=== PATIENT | male | born 1960 | race Caucasian/White ===

== ENCOUNTER 2020-02-09 11:30 | Inpatient (IN) | payer MEDICARE, MEDICAID ==
[~2020-02-09] VITALS: Ht 177.8 cm; Wt 64.9 kg
[2020-02-09] MEDS ORDERED: HALOPERIDOL 5 MG TABLET PO PRN (14:30)
[2020-02-09] MEDS ORDERED: ZOLPIDEM TARTRATE 10 MG TABLET PO PRN (14:30)
[2020-02-09] MEDS ORDERED: LORazepam 2 MG TABLET PO PRN (14:30)
[2020-02-09 15:06] VITALS: BP 104/74
[2020-02-09] MEDS ORDERED: LEVE500T53 PO (15:12)
[2020-02-09] MEDS ORDERED: METF-960 PO (15:12)
[2020-02-09 16:04] VITALS: BP 119/72
[2020-02-09 16:19] LABS: GLUCOMETER DEV NAME(LOC) BV2X.; GLUCOSE,POINT OF CARE 87 MG/DL (70-110)
[2020-02-09] MEDS ORDERED: PNEUMOCOCCAL VACCINE POLYVALENT 0.5 ML VIAL [PPSV23] IM ONE (16:45)
[2020-02-10 00:21] VITALS: BP 112/76
[2020-02-10 07:27] LABS: BASOPHILS % (AUTO) 0.7 % (0.0-2.0); EOSINOPHILS % (AUTO) 3.2 % (1.0-6.0); HEMATOCRIT 43.1 % (41-53); HEMOGLOBIN 14.2 g/dL (13.5-17.5); LYMPHOCYTES # (AUTO) 1.5 K/uL (1.0-4.8); LYMPHOCYTES % (AUTO) 25.2 % (22.0-44.0); MEAN CORPUSCULAR HEMOGLOBIN 29.1 pg (26.0-34.0); MEAN CORPUSCULAR VOLUME 88 fL (80-100); MONOCYTES # (AUTO) 0.5 K/uL (0.1-1.0); MONOCYTES % (AUTO) 8.5 % (2.0-9.0); NEUTROPHILS # (AUTO) 3.8 K/uL (1.8-7.7); NEUTROPHILS % (AUTO) 62.4 % (40.0-70.0); PLATELET COUNT (AUTO) 260 K/uL (150-450); RED BLOOD CELL COUNT(AUTO) 4.89 MIL/uL (4.50-5.90); RED CELL DISTRIBUTION WIDTH 14.7 % (11.5-14.5)
[2020-02-10 07:37] VITALS: BP 117/68
[2020-02-10 07:47] LABS: HEMOGLOBIN A1C 5.5 % (3.8-5.6)
[2020-02-10 07:51] LABS: ALANINE AMINOTRANSFERASE 23 U/L (12-78); ALKALINE PHOSPHATASE 73 U/L (46-116); ANION GAP 10 mmol/L (8-16); ASPARTATE AMINOTRANSFERASE 17 U/L (15-37); BILIRUBIN,TOTAL 0.7 mg/dL (0.1-1.0); CALCIUM, TOTAL 9.4 mg/dL (8.8-10.5); CARBON DIOXIDE 29 mmol/L (22-29); CHLORIDE 102 mmol/L (98-107); CHOL/HDL RATIO 2.9 (4.2-7.3); CHOLESTEROL 179 mg/dL (131-200); CREATININE 0.73 mg/dL (0.60-1.30); FREE T4 (FREE THYROXINE) 1.17 ng/dL (0.76-1.46); GLOMERULAR FILTR. RATE CALC > 60 mL/min (>60); GLUCOSE,RANDOM 84 mg/dL (70-110); HDL CHOLESTEROL 61 mg/dL (40-60); LDL CHOL (CALC.) 92 mg/dL (0-130); SODIUM SERUM 141 mmol/L (136-145); THYROID STIMULATING HORMONE 1.93 uIU/mL (0.36-3.74); TOTAL PROTEIN, SERUM 7.1 g/dL (6.4-8.2); TRIGLYCERIDES 129 mg/dL (15-150); UREA NITROGEN, BLOOD 12 mg/dL (7-18)
[2020-02-10 08:06] VITALS: BP 117/68
[2020-02-10] MEDS ORDERED: LevETIRAcetam 500 MG TABLET PO SCH (09:00)
[2020-02-10] MEDS ORDERED: NICOTINE 14 MG/24 HOUR PATCH TD PRN (09:15)
[2020-02-10] MEDS ORDERED: GuaiFENesin/D-METHORPHAN [SUGAR-FREE] 200-20MG/10 ML SYRUP UDCUP PO PRN (09:15)
[2020-02-10] MEDS ORDERED: ACETAMINOPHEN 325 MG TABLET PO PRN (09:15)
[2020-02-10] MEDS ORDERED: ALBUTEROL SULFATE HFA 90 MCG/PUFF 8 GM INHALER IH PRN (09:15)
[2020-02-10] MEDS ORDERED: MAG HYDROX/AL HYDROX/SIMETH ES 30 ML SUSPENSION UDCUP PO PRN (09:15)
[2020-02-10] MEDS ORDERED: PETROLATUM,WHITE 28 GM JELLY TP PRN (09:15)
[2020-02-10] MEDS ORDERED: MAGNESIUM HYDROXIDE SUSPENSION 30 ML UDCUP PO PRN (09:15)
[2020-02-10] MEDS ORDERED: LOPERAMIDE HCL 2 MG CAPSULE PO PRN (09:15)
[2020-02-10] MEDS ORDERED: IBUPROFEN 400 MG TABLET PO PRN (09:15)
[2020-02-10] MEDS ORDERED: ONDANSETRON HCL 4 MG TABLET PO PRN (09:15)
[2020-02-10] MEDS ORDERED: DOCUSATE SODIUM 100 MG CAPSULE PO PRN (09:15)
[2020-02-10] MEDS ORDERED: CloNIDine HCL 0.1 MG TABLET PO PRN (09:15)
[2020-02-10] MEDS ORDERED: PALIPERIDONE 3 MG ER TABLET PO ONE (13:00)
[2020-02-10] MEDS ORDERED: BuPROPion HCL XL 150 MG ER TABLET PO ONE (13:00)
[2020-02-10 16:15] VITALS: BP 108/76
[2020-02-10] MEDS: MetFORMIN HCL 500 MG TABLET PO SCH (16:29)
[2020-02-10] MEDS: LevETIRAcetam 500 MG TABLET PO SCH (16:29)
[2020-02-10 16:50] LABS: GLUCOMETER DEV NAME(LOC) BV2X.; GLUCOSE,POINT OF CARE 83 MG/DL (70-110)
[2020-02-10] MEDS: TraZODone HCL 100 MG TABLET PO SCH (20:27)
[2020-02-11 00:42] VITALS: BP 100/64
[2020-02-11 06:28] LABS: GLUCOMETER DEV NAME(LOC) BV2X.; GLUCOSE,POINT OF CARE 98 MG/DL (70-110)
[2020-02-11] MEDS: MetFORMIN HCL 500 MG TABLET PO SCH ×2 (06:57→16:28)
[2020-02-11 08:50] VITALS: BP 107/64
[2020-02-11] MEDS: LevETIRAcetam 500 MG TABLET PO SCH ×2 (09:48→16:28)
[2020-02-11] MEDS: BuPROPion HCL XL 150 MG ER TABLET PO SCH (09:48)
[2020-02-11] MEDS: PALIPERIDONE 3 MG ER TABLET PO SCH (09:48)
[2020-02-11 16:04] VITALS: BP 107/60
[2020-02-11 16:24] LABS: GLUCOMETER DEV NAME(LOC) BV2X.; GLUCOSE,POINT OF CARE 90 MG/DL (70-110)
[2020-02-11] MEDS: TraZODone HCL 100 MG TABLET PO SCH (20:26)
[2020-02-12 00:33] VITALS: BP 111/60
[2020-02-12 06:04] LABS: GLUCOMETER DEV NAME(LOC) BV2X.; GLUCOSE,POINT OF CARE 79 MG/DL (70-110)
[2020-02-12] MEDS: MetFORMIN HCL 500 MG TABLET PO SCH ×2 (07:05→16:30)
[2020-02-12] MEDS: LevETIRAcetam 500 MG TABLET PO SCH ×2 (08:06→16:30)
[2020-02-12] MEDS: PALIPERIDONE 3 MG ER TABLET PO SCH (08:06)
[2020-02-12] MEDS: BuPROPion HCL XL 150 MG ER TABLET PO SCH (08:06)
[2020-02-12 08:23] VITALS: BP 104/54
[2020-02-12 16:24] LABS: GLUCOMETER DEV NAME(LOC) BV2X.; GLUCOSE,POINT OF CARE 107 MG/DL (70-110)
[2020-02-12 16:46] VITALS: BP 95/61
[2020-02-12] MEDS: TraZODone HCL 100 MG TABLET PO SCH (20:31)
[2020-02-13 00:11] VITALS: BP 109/72
[2020-02-13 06:28] LABS: GLUCOMETER DEV NAME(LOC) BV2X.; GLUCOSE,POINT OF CARE 83 MG/DL (70-110)
[2020-02-13] MEDS: MetFORMIN HCL 500 MG TABLET PO SCH ×2 (06:59→17:36)
[2020-02-13 08:18] VITALS: BP 91/71
[2020-02-13] MEDS: PALIPERIDONE 3 MG ER TABLET PO SCH (08:26)
[2020-02-13] MEDS: LevETIRAcetam 500 MG TABLET PO SCH ×2 (08:27→17:36)
[2020-02-13] MEDS: BuPROPion HCL XL 150 MG ER TABLET PO SCH (08:27)
[2020-02-13 16:22] VITALS: BP 100/70
[2020-02-13 16:53] LABS: GLUCOMETER DEV NAME(LOC) BV2X.; GLUCOSE,POINT OF CARE 101 MG/DL (70-110)
[2020-02-13] MEDS: TraZODone HCL 100 MG TABLET PO SCH (20:05)
[2020-02-14 05:11] VITALS: BP 107/72
[2020-02-14] MEDS: MetFORMIN HCL 500 MG TABLET PO SCH ×2 (06:38→16:32)
[2020-02-14 06:47] LABS: GLUCOMETER DEV NAME(LOC) BV2X.; GLUCOSE,POINT OF CARE 88 MG/DL (70-110)
[2020-02-14 08:15] VITALS: BP 105/75
[2020-02-14] MEDS: LevETIRAcetam 500 MG TABLET PO SCH ×2 (08:47→16:31)
[2020-02-14] MEDS: BuPROPion HCL XL 150 MG ER TABLET PO SCH (08:47)
[2020-02-14] MEDS: PALIPERIDONE 3 MG ER TABLET PO SCH (08:47)
[2020-02-14 16:01] VITALS: BP 105/70
[2020-02-14 16:24] LABS: GLUCOMETER DEV NAME(LOC) BV2X.; GLUCOSE,POINT OF CARE 94 MG/DL (70-110)
[2020-02-14] MEDS: TraZODone HCL 100 MG TABLET PO SCH (20:36)
[2020-02-15] VITALS (7 sets, daily range): BP systolic 100–109; BP diastolic 64–72
[2020-02-15 06:26] LABS: GLUCOMETER DEV NAME(LOC) BV2X.; GLUCOSE,POINT OF CARE 87 MG/DL (70-110)
[2020-02-15] MEDS: MetFORMIN HCL 500 MG TABLET PO SCH ×2 (06:39→16:27)
[2020-02-15] MEDS: LevETIRAcetam 500 MG TABLET PO SCH ×2 (08:09→16:27)
[2020-02-15] MEDS: PALIPERIDONE 3 MG ER TABLET PO SCH (08:09)
[2020-02-15] MEDS: BuPROPion HCL XL 150 MG ER TABLET PO SCH (08:10)
[2020-02-15 16:27] LABS: GLUCOMETER DEV NAME(LOC) BV2X.; GLUCOSE,POINT OF CARE 93 MG/DL (70-110)
[2020-02-15] MEDS: TraZODone HCL 100 MG TABLET PO SCH (20:28)
[2020-02-16 01:59] VITALS: BP 103/45
[2020-02-16 02:06] VITALS: BP 103/45
[2020-02-16 06:24] LABS: GLUCOMETER DEV NAME(LOC) BV2X.; GLUCOSE,POINT OF CARE 123 MG/DL (70-110)
[2020-02-16] MEDS: MetFORMIN HCL 500 MG TABLET PO SCH ×2 (06:31→16:58)
[2020-02-16] MEDS: PALIPERIDONE 3 MG ER TABLET PO SCH (08:13)
[2020-02-16] MEDS: LevETIRAcetam 500 MG TABLET PO SCH ×2 (08:13→16:58)
[2020-02-16] MEDS: BuPROPion HCL XL 150 MG ER TABLET PO SCH (08:13)
[2020-02-16 08:18] VITALS: BP 115/71
[2020-02-16 16:06] VITALS: BP 145/72
[2020-02-16 17:05] LABS: GLUCOMETER DEV NAME(LOC) BV2X.; GLUCOSE,POINT OF CARE 78 MG/DL (70-110)
[2020-02-16] MEDS: TraZODone HCL 100 MG TABLET PO SCH (20:55)
[2020-02-17 02:57] VITALS: BP 91/66
[2020-02-17 05:00] VITALS: BP 91/66
[2020-02-17] MEDS: MetFORMIN HCL 500 MG TABLET PO SCH ×2 (06:31→16:38)
[2020-02-17 07:14] LABS: GLUCOMETER DEV NAME(LOC) BV2X.; GLUCOSE,POINT OF CARE 86 MG/DL (70-110)
[2020-02-17] MEDS: BuPROPion HCL XL 150 MG ER TABLET PO SCH (08:14)
[2020-02-17] MEDS: PALIPERIDONE 3 MG ER TABLET PO SCH (08:14)
[2020-02-17] MEDS: LevETIRAcetam 500 MG TABLET PO SCH ×2 (08:14→16:38)
[2020-02-17 09:11] VITALS: BP 121/64
[2020-02-17] MEDS ORDERED: DENTURE ADHESIVE 68 GM CREAM DT PRN (13:15)
[2020-02-17 17:05] LABS: GLUCOMETER DEV NAME(LOC) BV2X.; GLUCOSE,POINT OF CARE 87 MG/DL (70-110)
[2020-02-17 17:37] VITALS: BP 102/60
[2020-02-17] MEDS: TraZODone HCL 100 MG TABLET PO SCH (20:12)
[2020-02-18 06:00] VITALS: BP 115/82
[2020-02-18 06:09] LABS: GLUCOMETER DEV NAME(LOC) BV2X.; GLUCOSE,POINT OF CARE 89 MG/DL (70-110)
[2020-02-18] MEDS: MetFORMIN HCL 500 MG TABLET PO SCH ×2 (06:29→16:07)
[2020-02-18 08:25] VITALS: BP 102/64
[2020-02-18] MEDS: BuPROPion HCL XL 150 MG ER TABLET PO SCH (08:48)
[2020-02-18] MEDS: PALIPERIDONE 3 MG ER TABLET PO SCH (08:48)
[2020-02-18] MEDS: LevETIRAcetam 500 MG TABLET PO SCH ×2 (08:48→16:06)
[2020-02-18 16:17] LABS: GLUCOMETER DEV NAME(LOC) BV2X.; GLUCOSE,POINT OF CARE 86 MG/DL (70-110)
[2020-02-18 16:22] VITALS: BP 108/66
[2020-02-18] MEDS: TraZODone HCL 100 MG TABLET PO SCH (20:35)
[2020-02-19 04:46] VITALS: BP 96/72
[2020-02-19] MEDS: MetFORMIN HCL 500 MG TABLET PO SCH ×2 (06:08→16:30)
[2020-02-19 06:17] LABS: GLUCOMETER DEV NAME(LOC) BV2X.; GLUCOSE,POINT OF CARE 79 MG/DL (70-110)
[2020-02-19 08:31] VITALS: BP 105/70
[2020-02-19] MEDS: BuPROPion HCL XL 150 MG ER TABLET PO SCH (09:46)
[2020-02-19] MEDS: PALIPERIDONE 3 MG ER TABLET PO SCH (09:47)
[2020-02-19] MEDS: LevETIRAcetam 500 MG TABLET PO SCH ×2 (09:47→16:30)
[2020-02-19 16:19] VITALS: BP 107/68
[2020-02-19 17:37] LABS: GLUCOMETER DEV NAME(LOC) BV2X.; GLUCOSE,POINT OF CARE 112 MG/DL (70-110)
[2020-02-19] MEDS: TraZODone HCL 100 MG TABLET PO SCH (20:32)
[2020-02-20 00:19] VITALS: BP 100/68
[2020-02-20] MEDS: MetFORMIN HCL 500 MG TABLET PO SCH ×2 (06:07→16:30)
[2020-02-20 06:35] LABS: GLUCOMETER DEV NAME(LOC) BV2X.; GLUCOSE,POINT OF CARE 84 MG/DL (70-110)
[2020-02-20] MEDS: PALIPERIDONE 3 MG ER TABLET PO SCH (08:54)
[2020-02-20] MEDS: BuPROPion HCL XL 150 MG ER TABLET PO SCH (08:55)
[2020-02-20] MEDS: LevETIRAcetam 500 MG TABLET PO SCH ×2 (08:55→16:30)
[2020-02-20 09:20] VITALS: BP 111/67
[2020-02-20 16:00] VITALS: BP 109/68
[2020-02-20 16:55] LABS: GLUCOMETER DEV NAME(LOC) BV2X.; GLUCOSE,POINT OF CARE 91 MG/DL (70-110)
[2020-02-20] MEDS: TraZODone HCL 100 MG TABLET PO SCH (20:42)
[2020-02-21 05:23] VITALS: BP 99/63
[2020-02-21] MEDS: MetFORMIN HCL 500 MG TABLET PO SCH ×2 (06:36→16:10)
[2020-02-21 06:44] LABS: GLUCOMETER DEV NAME(LOC) BV2X.; GLUCOSE,POINT OF CARE 82 MG/DL (70-110)
[2020-02-21 08:37] VITALS: BP 124/71
[2020-02-21] MEDS: BuPROPion HCL XL 150 MG ER TABLET PO SCH (08:57)
[2020-02-21] MEDS: LevETIRAcetam 500 MG TABLET PO SCH ×2 (08:57→16:10)
[2020-02-21] MEDS: PALIPERIDONE 3 MG ER TABLET PO SCH (08:57)
[2020-02-21 16:30] LABS: GLUCOMETER DEV NAME(LOC) BV2X.; GLUCOSE,POINT OF CARE 79 MG/DL (70-110)
[2020-02-21 16:31] VITALS: BP 109/69
[2020-02-21] MEDS: TraZODone HCL 100 MG TABLET PO SCH (20:34)
[2020-02-22 02:11] VITALS: BP 111/62
[2020-02-22] MEDS: MetFORMIN HCL 500 MG TABLET PO SCH ×2 (07:09→16:30)
[2020-02-22 07:13] LABS: GLUCOMETER DEV NAME(LOC) BV2X.; GLUCOSE,POINT OF CARE 80 MG/DL (70-110)
[2020-02-22 08:33] VITALS: BP 100/62
[2020-02-22] MEDS: LevETIRAcetam 500 MG TABLET PO SCH ×2 (09:24→16:30)
[2020-02-22] MEDS: PALIPERIDONE 3 MG ER TABLET PO SCH (09:24)
[2020-02-22] MEDS: BuPROPion HCL XL 150 MG ER TABLET PO SCH (09:24)
[2020-02-22 16:53] LABS: GLUCOMETER DEV NAME(LOC) BV2X.; GLUCOSE,POINT OF CARE 97 MG/DL (70-110)
[2020-02-22 17:07] VITALS: BP 109/76
[2020-02-22] MEDS: TraZODone HCL 100 MG TABLET PO SCH (20:31)
[2020-02-23 05:17] VITALS: BP 108/75
[2020-02-23] MEDS: MetFORMIN HCL 500 MG TABLET PO SCH ×2 (06:49→16:39)
[2020-02-23 07:03] LABS: GLUCOMETER DEV NAME(LOC) BV2X.; GLUCOSE,POINT OF CARE 82 MG/DL (70-110)
[2020-02-23] MEDS: PALIPERIDONE 3 MG ER TABLET PO SCH (09:00)
[2020-02-23] MEDS: LevETIRAcetam 500 MG TABLET PO SCH ×2 (09:00→16:39)
[2020-02-23] MEDS: BuPROPion HCL XL 150 MG ER TABLET PO SCH (09:00)
[2020-02-23 09:01] VITALS: BP 101/71
[2020-02-23 16:31] LABS: GLUCOMETER DEV NAME(LOC) BV2X.; GLUCOSE,POINT OF CARE 85 MG/DL (70-110)
[2020-02-23 17:44] VITALS: BP 93/68
[2020-02-23] MEDS: TraZODone HCL 100 MG TABLET PO SCH (20:28)
[2020-02-24 06:47] VITALS: BP 108/68
[2020-02-24 07:23] LABS: GLUCOMETER DEV NAME(LOC) BV2X.; GLUCOSE,POINT OF CARE 88 MG/DL (70-110)
[2020-02-24] MEDS: MetFORMIN HCL 500 MG TABLET PO SCH ×2 (07:25→16:41)
[2020-02-24 08:50] VITALS: BP 122/74
[2020-02-24] MEDS: PALIPERIDONE 3 MG ER TABLET PO SCH (09:55)
[2020-02-24] MEDS: BuPROPion HCL XL 150 MG ER TABLET PO SCH (09:55)
[2020-02-24] MEDS: LevETIRAcetam 500 MG TABLET PO SCH ×2 (09:55→16:41)
[2020-02-24 16:34] LABS: GLUCOMETER DEV NAME(LOC) BV2X.; GLUCOSE,POINT OF CARE 97 MG/DL (70-110)
[2020-02-24 16:46] VITALS: BP 103/60
[2020-02-24] MEDS: TraZODone HCL 100 MG TABLET PO SCH (20:42)
[2020-02-25 05:36] VITALS: BP 108/58
[2020-02-25 06:29] LABS: GLUCOMETER DEV NAME(LOC) BV2X.; GLUCOSE,POINT OF CARE 93 MG/DL (70-110)
[2020-02-25] MEDS: MetFORMIN HCL 500 MG TABLET PO SCH ×2 (06:43→16:33)
[2020-02-25 09:22] VITALS: BP 112/63
[2020-02-25] MEDS: LevETIRAcetam 500 MG TABLET PO SCH ×2 (09:26→16:33)
[2020-02-25] MEDS: PALIPERIDONE 3 MG ER TABLET PO SCH (09:27)
[2020-02-25] MEDS: BuPROPion HCL XL 150 MG ER TABLET PO SCH (09:27)
[2020-02-25 16:22] LABS: GLUCOMETER DEV NAME(LOC) BV2X.; GLUCOSE,POINT OF CARE 97 MG/DL (70-110)
[2020-02-25 16:27] VITALS: BP 100/66
[2020-02-25] MEDS: TraZODone HCL 100 MG TABLET PO SCH (20:37)
[2020-02-26 00:54] VITALS: BP 126/74
[2020-02-26] MEDS: MetFORMIN HCL 500 MG TABLET PO SCH ×2 (06:45→16:36)
[2020-02-26] MEDS: PALIPERIDONE 3 MG ER TABLET PO SCH (08:34)
[2020-02-26] MEDS: BuPROPion HCL XL 150 MG ER TABLET PO SCH (08:34)
[2020-02-26] MEDS: LevETIRAcetam 500 MG TABLET PO SCH ×2 (08:34→16:36)
[2020-02-26 09:01] VITALS: BP 135/81
[2020-02-26 11:30] LABS: GLUCOMETER DEV NAME(LOC) BV2X.; GLUCOSE,POINT OF CARE 96 MG/DL (70-110)
[2020-02-26 16:19] LABS: GLUCOMETER DEV NAME(LOC) BV2X.; GLUCOSE,POINT OF CARE 79 MG/DL (70-110)
[2020-02-26 16:28] VITALS: BP 105/62
[2020-02-26] MEDS: TraZODone HCL 100 MG TABLET PO SCH (20:36)
[2020-02-27 05:19] VITALS: BP 102/70
[2020-02-27] MEDS: MetFORMIN HCL 500 MG TABLET PO SCH ×2 (06:50→17:08)
[2020-02-27 07:00] LABS: GLUCOMETER DEV NAME(LOC) BV2X.; GLUCOSE,POINT OF CARE 92 MG/DL (70-110)
[2020-02-27 08:09] VITALS: BP 105/60
[2020-02-27] MEDS: PALIPERIDONE 3 MG ER TABLET PO SCH (09:06)
[2020-02-27] MEDS: LevETIRAcetam 500 MG TABLET PO SCH ×2 (09:07→17:08)
[2020-02-27] MEDS: BuPROPion HCL XL 150 MG ER TABLET PO SCH (09:07)
[2020-02-27 16:26] VITALS: BP 100/69
[2020-02-27 17:36] LABS: GLUCOMETER DEV NAME(LOC) BV2X.; GLUCOSE,POINT OF CARE 98 MG/DL (70-110)
[2020-02-27] MEDS: TraZODone HCL 100 MG TABLET PO SCH (21:05)
[2020-02-28 06:03] VITALS: BP 99/59
[2020-02-28 06:33] LABS: GLUCOMETER DEV NAME(LOC) BV2X.; GLUCOSE,POINT OF CARE 87 MG/DL (70-110)
[2020-02-28] MEDS: MetFORMIN HCL 500 MG TABLET PO SCH ×2 (06:46→16:36)
[2020-02-28 08:12] VITALS: BP 106/60
[2020-02-28] MEDS: PALIPERIDONE 3 MG ER TABLET PO SCH (09:07)
[2020-02-28] MEDS: BuPROPion HCL XL 150 MG ER TABLET PO SCH (09:07)
[2020-02-28] MEDS: LevETIRAcetam 500 MG TABLET PO SCH ×2 (09:07→16:36)
[2020-02-28 16:26] VITALS: BP 107/68
[2020-02-28 16:26] LABS: GLUCOMETER DEV NAME(LOC) BV2X.; GLUCOSE,POINT OF CARE 107 MG/DL (70-110)
[2020-02-28] MEDS: TraZODone HCL 100 MG TABLET PO SCH (20:44)
[2020-02-29 01:04] VITALS: BP 104/62
[2020-02-29] MEDS: MetFORMIN HCL 500 MG TABLET PO SCH ×2 (06:32→16:33)
[2020-02-29 07:01] LABS: GLUCOMETER DEV NAME(LOC) BV2X.; GLUCOSE,POINT OF CARE 80 MG/DL (70-110)
[2020-02-29 08:36] VITALS: BP 105/68
[2020-02-29] MEDS: BuPROPion HCL XL 150 MG ER TABLET PO SCH (08:40)
[2020-02-29] MEDS: PALIPERIDONE 3 MG ER TABLET PO SCH (08:40)
[2020-02-29] MEDS: LevETIRAcetam 500 MG TABLET PO SCH ×2 (08:40→16:33)
[2020-02-29 16:00] VITALS: BP 106/66
[2020-02-29 16:36] LABS: GLUCOMETER DEV NAME(LOC) BV2X.; GLUCOSE,POINT OF CARE 124 MG/DL (70-110)
[2020-02-29] MEDS: TraZODone HCL 100 MG TABLET PO SCH (20:33)
[2020-03-01 03:40] VITALS: BP 124/83
[2020-03-01 06:28] LABS: GLUCOMETER DEV NAME(LOC) BV2X.; GLUCOSE,POINT OF CARE 88 MG/DL (70-110)
[2020-03-01] MEDS: MetFORMIN HCL 500 MG TABLET PO SCH ×2 (06:33→16:51)
[2020-03-01 08:22] VITALS: BP 116/60
[2020-03-01] MEDS: PALIPERIDONE 3 MG ER TABLET PO SCH (09:12)
[2020-03-01] MEDS: BuPROPion HCL XL 150 MG ER TABLET PO SCH (09:12)
[2020-03-01] MEDS: LevETIRAcetam 500 MG TABLET PO SCH ×2 (09:12→16:51)
[2020-03-01 16:39] VITALS: BP 148/96
[2020-03-01 17:02] LABS: GLUCOMETER DEV NAME(LOC) BV2X.; GLUCOSE,POINT OF CARE 105 MG/DL (70-110)
[2020-03-01] MEDS: TraZODone HCL 100 MG TABLET PO SCH (20:51)
[2020-03-02 05:54] VITALS: BP 120/86
[2020-03-02] MEDS: MetFORMIN HCL 500 MG TABLET PO SCH ×2 (06:57→16:56)
[2020-03-02 08:18] VITALS: BP 112/72
[2020-03-02] MEDS: BuPROPion HCL XL 150 MG ER TABLET PO SCH (08:54)
[2020-03-02] MEDS: LevETIRAcetam 500 MG TABLET PO SCH ×2 (08:54→16:56)
[2020-03-02] MEDS: PALIPERIDONE 3 MG ER TABLET PO SCH (08:54)
[2020-03-02 16:08] VITALS: BP 103/63
[2020-03-02 17:05] LABS: GLUCOMETER DEV NAME(LOC) BV2X.; GLUCOSE,POINT OF CARE 85 MG/DL (70-110)
[2020-03-02] MEDS: TraZODone HCL 100 MG TABLET PO SCH (20:20)
[2020-03-03 00:02] VITALS: BP 102/62
[2020-03-03 06:49] LABS: GLUCOMETER DEV NAME(LOC) BV2X.; GLUCOSE,POINT OF CARE 93 MG/DL (70-110)
[2020-03-03] MEDS: MetFORMIN HCL 500 MG TABLET PO SCH ×2 (06:52→17:38)
[2020-03-03 08:27] VITALS: BP 105/66
[2020-03-03] MEDS: BuPROPion HCL XL 150 MG ER TABLET PO SCH (08:42)
[2020-03-03] MEDS: PALIPERIDONE 3 MG ER TABLET PO SCH (08:44)
[2020-03-03] MEDS: LevETIRAcetam 500 MG TABLET PO SCH ×2 (08:44→17:38)
[2020-03-03 16:30] VITALS: BP 108/64
[2020-03-03 16:48] LABS: GLUCOMETER DEV NAME(LOC) BV2X.; GLUCOSE,POINT OF CARE 72 MG/DL (70-110)
[2020-03-03] MEDS: TraZODone HCL 100 MG TABLET PO SCH (21:00)
[2020-03-03] MEDS: LamoTRIgine 100 MG TABLET PO SCH (21:00)
[2020-03-03 22:20] LABS: GLUCOMETER DEV NAME(LOC) BV2X.; GLUCOSE,POINT OF CARE 80 MG/DL (70-110)
[2020-03-04 00:24] VITALS: BP 110/72
[2020-03-04] MEDS: MetFORMIN HCL 500 MG TABLET PO SCH ×2 (06:39→16:27)
[2020-03-04 06:49] LABS: GLUCOMETER DEV NAME(LOC) BV2X.; GLUCOSE,POINT OF CARE 85 MG/DL (70-110)
[2020-03-04 08:40] VITALS: BP 117/76
[2020-03-04] MEDS: PALIPERIDONE 6 MG ER TABLET PO SCH (09:00)
[2020-03-04] MEDS: BuPROPion HCL XL 150 MG ER TABLET PO SCH (09:42)
[2020-03-04] MEDS: LevETIRAcetam 500 MG TABLET PO SCH ×2 (09:42→16:27)
[2020-03-04 16:13] VITALS: BP 113/71
[2020-03-04 16:37] LABS: GLUCOMETER DEV NAME(LOC) BV2X.; GLUCOSE,POINT OF CARE 74 MG/DL (70-110)
[2020-03-04] MEDS: TraZODone HCL 100 MG TABLET PO SCH (20:40)
[2020-03-04] MEDS: LamoTRIgine 100 MG TABLET PO SCH (20:40)
[2020-03-05 00:09] VITALS: BP 110/72
[2020-03-05 06:00] LABS: GLUCOMETER DEV NAME(LOC) BV2X.; GLUCOSE,POINT OF CARE 93 MG/DL (70-110)
[2020-03-05] MEDS: MetFORMIN HCL 500 MG TABLET PO SCH ×2 (06:44→16:41)
[2020-03-05] MEDS: PALIPERIDONE 6 MG ER TABLET PO SCH (09:00)
[2020-03-05 09:15] VITALS: BP 118/78
[2020-03-05] MEDS: BuPROPion HCL XL 150 MG ER TABLET PO SCH (10:09)
[2020-03-05] MEDS: LevETIRAcetam 500 MG TABLET PO SCH ×2 (10:11→16:41)
[2020-03-05 16:23] LABS: GLUCOMETER DEV NAME(LOC) BV2X.; GLUCOSE,POINT OF CARE 116 MG/DL (70-110)
[2020-03-05 16:24] VITALS: BP 107/66
[2020-03-05] MEDS: LamoTRIgine 100 MG TABLET PO SCH (20:46)
[2020-03-05] MEDS: TraZODone HCL 100 MG TABLET PO SCH (20:46)
[2020-03-06] MEDS: MetFORMIN HCL 500 MG TABLET PO SCH ×2 (06:18→16:35)
[2020-03-06 06:26] LABS: GLUCOMETER DEV NAME(LOC) BV2X.; GLUCOSE,POINT OF CARE 107 MG/DL (70-110)
[2020-03-06 08:36] VITALS: BP 105/60
[2020-03-06] MEDS: LevETIRAcetam 500 MG TABLET PO SCH ×2 (08:47→16:35)
[2020-03-06] MEDS: BuPROPion HCL XL 150 MG ER TABLET PO SCH (08:47)
[2020-03-06] MEDS: PALIPERIDONE 6 MG ER TABLET PO SCH (09:25)
[2020-03-06 16:26] LABS: GLUCOMETER DEV NAME(LOC) BV2X.; GLUCOSE,POINT OF CARE 124 MG/DL (70-110)
[2020-03-06 17:24] VITALS: BP 127/78
[2020-03-06] MEDS: LamoTRIgine 100 MG TABLET PO SCH (20:44)
[2020-03-06] MEDS: TraZODone HCL 100 MG TABLET PO SCH (20:44)
[2020-03-07 01:07] VITALS: BP 100/60
[2020-03-07 06:27] LABS: GLUCOMETER DEV NAME(LOC) BV2X.; GLUCOSE,POINT OF CARE 93 MG/DL (70-110)
[2020-03-07] MEDS: MetFORMIN HCL 500 MG TABLET PO SCH ×2 (06:36→16:18)
[2020-03-07 08:46] VITALS: BP 111/70
[2020-03-07] MEDS: BuPROPion HCL XL 150 MG ER TABLET PO SCH (08:52)
[2020-03-07] MEDS: LevETIRAcetam 500 MG TABLET PO SCH ×2 (08:52→16:18)
[2020-03-07] MEDS: PALIPERIDONE 6 MG ER TABLET PO SCH (08:52)
[2020-03-07 16:14] VITALS: BP 123/71
[2020-03-07 16:47] LABS: GLUCOMETER DEV NAME(LOC) BV2X.; GLUCOSE,POINT OF CARE 113 MG/DL (70-110)
[2020-03-07] MEDS: TraZODone HCL 100 MG TABLET PO SCH (20:48)
[2020-03-07] MEDS: LamoTRIgine 100 MG TABLET PO SCH (20:48)
[2020-03-08] VITALS: BP 108/68
[2020-03-08 06:30] LABS: GLUCOMETER DEV NAME(LOC) BV2X.; GLUCOSE,POINT OF CARE 90 MG/DL (70-110)
[2020-03-08] MEDS: MetFORMIN HCL 500 MG TABLET PO SCH ×2 (07:01→16:36)
[2020-03-08 08:35] VITALS: BP 110/72
[2020-03-08] MEDS: LevETIRAcetam 500 MG TABLET PO SCH ×2 (08:53→16:36)
[2020-03-08] MEDS: BuPROPion HCL XL 150 MG ER TABLET PO SCH (08:53)
[2020-03-08] MEDS: PALIPERIDONE 6 MG ER TABLET PO SCH (08:53)
[2020-03-08 16:25] VITALS: BP 122/74
[2020-03-08 16:28] LABS: GLUCOMETER DEV NAME(LOC) BV2X.; GLUCOSE,POINT OF CARE 101 MG/DL (70-110)
[2020-03-08] MEDS: LamoTRIgine 100 MG TABLET PO SCH (20:26)
[2020-03-08] MEDS: TraZODone HCL 100 MG TABLET PO SCH (20:26)
[2020-03-09 05:59] VITALS: BP 118/72
[2020-03-09] MEDS: MetFORMIN HCL 500 MG TABLET PO SCH ×2 (06:24→16:39)
[2020-03-09 06:44] LABS: GLUCOMETER DEV NAME(LOC) BV2X.; GLUCOSE,POINT OF CARE 89 MG/DL (70-110)
[2020-03-09 08:52] VITALS: BP 120/65
[2020-03-09] MEDS: PALIPERIDONE 6 MG ER TABLET PO SCH (09:02)
[2020-03-09] MEDS: BuPROPion HCL XL 150 MG ER TABLET PO SCH (09:03)
[2020-03-09] MEDS: LevETIRAcetam 500 MG TABLET PO SCH ×2 (09:03→16:39)
[2020-03-09 16:22] LABS: GLUCOMETER DEV NAME(LOC) BV2X.; GLUCOSE,POINT OF CARE 91 MG/DL (70-110)
[2020-03-09 18:01] VITALS: BP 134/64
[2020-03-09] MEDS: LamoTRIgine 100 MG TABLET PO SCH (20:37)
[2020-03-09] MEDS: TraZODone HCL 100 MG TABLET PO SCH (20:37)
[2020-03-10 06:16] VITALS: BP 126/71
[2020-03-10 06:40] LABS: GLUCOMETER DEV NAME(LOC) BV2X.; GLUCOSE,POINT OF CARE 92 MG/DL (70-110)
[2020-03-10] MEDS: MetFORMIN HCL 500 MG TABLET PO SCH (06:43)
[2020-03-10 08:42] VITALS: BP 112/63
[2020-03-10] MEDS: PALIPERIDONE 6 MG ER TABLET PO SCH (09:14)
[2020-03-10] MEDS: BuPROPion HCL XL 150 MG ER TABLET PO SCH (09:15)
[2020-03-10] MEDS: LevETIRAcetam 500 MG TABLET PO SCH (09:15)
[2020-03-10] MEDS ORDERED: METF-960 PO (10:01)
[2020-03-10] MEDS ORDERED: BUPR-93 PO (10:22)
[2020-03-10] MEDS ORDERED: PALI6TAB15 PO (10:22)
[2020-03-10] MEDS ORDERED: TRAZ-257 PO (10:22)
[2020-03-10] MEDS ORDERED: LAMO100 PO (10:22)
== END 2020-03-10 14:02 | disposition home or self-care (01) | DRG 885 ==
LOC: B2X 14:25
PROVIDERS: ADMIT Psychiatry & Neurology Child & Adolescent Psychiatry; ATTEND Psychiatry & Neurology Child & Adolescent Psychiatry
DX: F20.0 Paranoid schizophrenia (principal); R45.851 Suicidal ideations; G40.909 Epilepsy, unspecified, not intractable, without status epilepticus; F10.10 Alcohol abuse, uncomplicated; E11.9 Type 2 diabetes mellitus without complications; K59.00 Constipation, unspecified; Z59.0 Homelessness; Z91.5 Personal history of self-harm; F12.90 Cannabis use, unspecified, uncomplicated; G47.9 Sleep disorder, unspecified; F19.10 Other psychoactive substance abuse, uncomplicated
CPT/HCPCS: 83036; 84439; 84443; 87081